=== PATIENT | female | born 1960 | race Caucasian/White ===

== ENCOUNTER → 2025-07-11 07:38 | Outpatient (REF) | payer BC, SELFPAY | LOC: RCS 07:38 | PROVIDERS: ATTENDING PHYSICIAN Internal Medicine Cardiovascular Disease; FAMILY PHYSICIAN Nurse Practitioner | DX: I10 Essential (primary) hypertension (principal); I31.39 Other pericardial effusion (noninflammatory) | CPT/HCPCS: 93306; 93356 ==